=== PATIENT | female | born 1960 | race Hispanic/Latino ===

== ENCOUNTER 2018-08-15 12:50 | Day surgery (SDC) | payer MEDICAID ==
[~2018-08-15 12:50] MED LIST: DILAUDID IV PRN; LACTATED RINGERS 1,000 ML IV SCH; VERSED IV NR; ZOFRAN IV PRN
[2018-08-15] MEDS ORDERED: LACTATED RINGERS 1,000 ML IV SCH (14:00)
[2018-08-15] MEDS ORDERED: ANCEF/STERILE WATER 2 GM/20 ML IV NR (14:30)
--- NOTE | 2018-08-15 14:31 | Anesthesia Day of Surgery ---
Anesthesia Day of Surgery - Day of Surgery Patient Examined: Yes Patient H&P Reviewed: Yes Patient is NPO: Yes
--- NOTE | 2018-08-15 14:31 | Anesthesia Consultation ---
Anesthesia Consult and Med Hx Date of service: 08/15/18 - Airway Anesthetic Teeth Evaluation: Edentulous ROM Head & Neck: Adequate Mental/Hyoid Distance: Adequate Mallampati Class: Class II Intubation Access Assessment: Probably Good - Pre-Operative Health Status ASA Pre-Surgery Classification: ASA4 Proposed Anesthetic Plan: General - Pulmonary Hx Smoking: No Hx Asthma: No SOB: Yes (on exertion; 2/2 "lung muscle weakness" following CVA in 1992) COPD: No Hx Sleep Apnea: No (FOUZIA PRE SCREEN LOW RISK.) - Cardiovascular System Hx Hypertension: No Hx Heart Attack/AMI: No Hx Percutaneous Transluminal Coronary Angioplasty (PTCA): No - Central Nervous System CVA: Yes (1992 "MILD",SOB DUE TO WEAKNESS OF LUNG MUSCLES) Hx Back Pain: Yes (NECK AND BACK PAIN) Hx Psychiatric Problems: Yes (PANIC ATTACKS) - Gastrointestinal Hx Gastroesophageal Reflux Disease: No (hx esophageal strictures s/p dilatations. No reflux. ) - Endocrine Hx Renal Disease: No Hx Liver Disease: Yes (VORA without cirrhosis) Hx Non-Insulin Dependent Diabetes: Yes Hx Thyroid Disease: No - Hematic Hx Anemia: Yes (NOT RECENT)
[2018-08-15] MEDS ORDERED: ZOFRAN ONE (16:15)
[2018-08-15] MEDS ORDERED: DECADRON ONE (16:15)
[2018-08-15] MEDS ORDERED: DIPRIVAN 10 MG/ML IV ONE (16:16)
[2018-08-15] MEDS ORDERED: SUBLIMAZE ONE (16:16)
--- NOTE | 2018-08-15 16:33 | Post Operative Note ---
Date of procedure: 08/15/18 Pre-op diagnosis: renal stones Post-op diagnosis: same Findings: as above Procedure: eswl Anesthesia: [place] Surgeon: ELVA LUCIA Estimated blood loss: none Pathology: none Condition: stable Disposition: PACU
--- NOTE | 2018-08-15 16:34 | Discharge Summary ---
Short Stay Discharge Plan Activity: other (no straining ) Weight Bearing Status: Full Weight Bearing Diet: low fat, low cholesterol, low salt Special Instructions: other (inc fluids ) Durable Medical Equipment Needed Upon Discharge: other (stent ) Follow up with: CARYN BARAKAT MD [Primary Care Provider] - 7 Days DIONTE WALLACE MD [Staff Physician] - 7 Days
--- NOTE | 2018-08-15 17:37 | Operative Report ---
PREOPERATIVE DIAGNOSES: Left renal stones, previous stent, large cluster of stones in lower pole. POSTOPERATIVE DIAGNOSES: Left renal stones, previous stent, large cluster of stones in lower pole. PROCEDURE: Left lithotripsy. SURGEON: Sreedhar Hensley MD ANESTHESIA: General. FINDINGS: This is a woman with a large stone, previous lithotripsy, which fragmented the stone well, but she needs a second stage lithotripsy. She has a double-J stent. DESCRIPTION OF PROCEDURE: The patient was brought to lithotripsy room and placed on the table. Following induction of anesthesia, stone was easily localized both the AP and oblique image. Shocks were begun at 1 kV and increased to a maximum of 8 kV. A total of of 2500 shocks were given. The patient tolerated the procedure well. Stent is in position, brought to recovery in stable condition. JOB# [id number] SHAMIKA/RIANA
--- NOTE | 2018-08-15 17:53 | Post Anesthesia Evaluation ---
- Post Anesthesia Evaluation Patient Participated: Yes Airway Patent: Yes Stable Respiratory Function: Yes Nausea/Vomiting: No Temp > 96.8F: Yes Pain Manageable: Yes Adequeate Hydration: Yes Anesthesia Complications: No
[2018-08-15 22:27] VITALS: BP 122/72
== END 2018-08-15 12:51 | disposition home or self-care (01) ==
LOC: OR 12:50
PROVIDERS: ATTEND Urology
DX: N20.0 Calculus of kidney (principal); K21.9 Gastro-esophageal reflux disease without esophagitis; F32.9 Major depressive disorder, single episode, unspecified; F41.9 Anxiety disorder, unspecified; E11.9 Type 2 diabetes mellitus without complications; Z79.899 Other long term (current) drug therapy; Z88.5 Allergy status to narcotic agent; Z85.3 Personal history of malignant neoplasm of breast; Z90.13 Acquired absence of bilateral breasts and nipples; Z86.2 Personal history of diseases of the blood and blood-forming organs and certain disorders involving the immune mechanism; Z88.8 Allergy status to other drugs, medicaments and biological substances; Z86.73 Personal history of transient ischemic attack (TIA), and cerebral infarction without residual deficits
CPT/HCPCS: 50590; 82962; J0690; J1100; J2250; J2405; J2704; J3010; J7120